=== PATIENT | male | born 1995 | race Two or more races ===

== ENCOUNTER 2017-10-24 20:36 | Emergency (ER) | payer OTHER ==
[2017-10-24 20:42] VITALS: BP 139/93; PULSE 81; RESP 20; TEMP 98.8; O2SAT 96
--- NOTE | 2017-10-24 21:40 | EDPHY ---
H & P Time Seen by Provider: 10/24/17 21:06 HPI/ROS: CHIEF COMPLAINT: Cough, right rib pain HISTORY OF PRESENT ILLNESS: 21-year-old male presents to the emergency department with cough for last 1 week. The patient states over last few days he has had for sided rib pain especially with coughing. The patient has pain in the right side of his chest. He denies otherwise feeling short of breath. He did have fevers which have now resolved. No flu shot this year. No history of asthma. No abdominal pain. No nausea or vomiting. No diarrhea. No recent travel. No known ill contacts. REVIEW OF SYSTEMS: Constitutional: Fever as above Eyes: No double or blurry vision. ENT: No sore throat. Respiratory: Cough, shortness of breath. Right rib pain Cardiac: No chest pain. Gastrointestinal: No abdominal pain, vomiting or diarrhea. Genitourinary: No dysuria. Musculoskeletal: No neck or back pain. Skin: No rashes. Neurological: No headache. Past Medical/Surgical History: Negative Social History: [employer] student Smoking Status: Never smoked Physical Exam: General Appearance: Alert, no distress. Afebrile. No apparent distress. 96% on room air. Eyes: Pupils equal and round. Extraocular motions are all intact. ENT: Mouth: Mucous membranes moist. Respiratory: No wheezing, rhonchi, or rales, lungs are clear to auscultation. Mild pain well patient to the right anterior lateral aspect of the chest wall. No palpable crepitus or other bony abnormality. Cardiovascular: Regular rate and rhythm. Gastrointestinal: Abdomen is soft and nontender, no masses, no rebound or guarding, bowel sounds normal. Neurological: Alert and oriented x 3, cranial nerves II through XII grossly intact Skin: Warm and dry, no rashes. Musculoskeletal: Nontender to palpate along the cervical, thoracic or lumbar spine. Neck is supple. Extremities: Full range of motion and no peripheral edema. Psychiatric: Patient is oriented X 3, there is no agitation. Constitutional: Initial Vital Signs Temperature (C) 37.1 C 10/24/17 20:39 Heart Rate 81 10/24/17 20:39 Respiratory Rate 20 10/24/17 20:39 Blood Pressure 139/93 H 10/24/17 20:39 O2 Sat (%) 96 10/24/17 20:39 O2 Delivery Mode Room Air Allergies/Adverse Reactions: No Known Allergies Allergy (Unverified 10/24/17 20:38) Home Medications: Medication Instructions Recorded NK [No Known Home Meds] 10/24/17 Medical Decision Making - Diagnostics Imaging Results: Imaging Impressions Chest X-Ray 10/24/17 21:29 Impression: Normal. Imaging: I viewed and interpreted images myself ED Course/Re-evaluation: 21-year-old male presents with productive cough and right-sided rib pain. Chest x-ray has been ordered with pneumonia. The patient does not history of asthma. I do not think testing for influenza is indicated. The patient has been sick for over 1 week. He is afebrile and nontoxic-appearing. Chest x-ray reveals no evidence of pneumonia. Clinically I think this patient likely has costochondritis versus musculoskeletal chest wall pain. He was encouraged to use anti-inflammatories. He was instructed to return to the emergency department if he developed shortness of breath, fever, or if he felt worse in any way. Differential Diagnosis: Including but not limited to viral upper respiratory infection, costochondritis , musculoskeletal rib pain, bronchitis, pneumonia, influenza Departure - Departure Disposition: Home, Routine, Self-Care Clinical Impression: Cough, Chest wall pain Upper respiratory infection Qualifiers: URI type: unspecified URI Qualified Code(s): J06.9 - Acute upper respiratory infection, unspecified Condition: Good Instructions: Costochondritis (ED), Upper Respiratory Infection (ED), Chest Wall Pain (ED) Additional Instructions: Adult Pain & Fever Control: We recommend Acetaminophen (Tylenol) and Ibuprofen (Motrin,Advil) for pain and fever control. When fever is high or pain severe, both drugs can be used at the same time, but at different intervals. Please note the time differences. Your dose is: Acetaminophen 1000mg every 4 to 6 hours Ibuprofen 600mg every 8 hours with food Note: do not take Acetaminophen with Hydrocodone (Vicodin, Lortab) or Oycodone (Percocet). These medications also contain Acetaminophen. No more than 3000mg of Acetaminophen should be taken in 24 hours (for an adult). Referrals: [facility] [Clinic] - As per Instructions Stand Alone Forms: School Excuse
== END 2017-10-24 22:26 | disposition home or self-care (01) ==
DX: J06.9 Acute upper respiratory infection, unspecified (principal); R07.89 Other chest pain